=== PATIENT | male | born 1975 | race African-American/Black ===

== ENCOUNTER 2022-01-14 00:40 | Emergency (ER) | payer MEDICAID ==
[~2022-01-14] VITALS: Ht 172.7 cm; Wt 74.0 kg
[2022-01-14] MEDS ORDERED: SODIUM CHLORIDE 0.9% 1,000 ML IV ONE (01:00)
[2022-01-14 01:46] VITALS: BP 152/79
[2022-01-14 02:37] LABS: HEMATOCRIT. 43.3 % (42.0-52.0); HEMOGLOBIN. 14.2 g/dL (14.0-18.0); LYMPHOCYTES % 27.6 % (20.0-50.0); MEAN CORPUSCULAR HEMOGLOBIN 26.8 pg (28.0-32.0); MEAN CORPUSCULAR VOLUME 81.9 fL (80.0-94.0); MEAN PLATELET VOLUME 9.8 fl (7.4-10.4); NEUTROPHILS % 59.4 % (40.0-76.0); PLATELET 180 x1000/uL (130-400); RED BLOOD CELL COUNT 5.29 mill/uL (4.7-6.1); RED CELL DISTRIBUTION WIDTH 14.2 % (11.6-14.6)
[2022-01-14 02:53] LABS: CHLORIDE 105 mEq/L (98-107)
[2022-01-14 02:55] LABS: CLARITY URINE CLEAR (CLEAR); COLOR URINE YELLOW (YELLOW); KETONES URINE NEGATIVE (NEGATIVE); LEUKOCYTE ESTERASE URINE NEGATIVE (NEGATIVE); NITRITE URINE NEGATIVE (NEGATIVE); OCCULT BLOOD URINE NEGATIVE (NEGATIVE); PROTEIN URINE NEGATIVE (NEGATIVE); SPECIFIC GRAVITY URINE 1.009 (1.005-1.030); UROBILINOGEN URINE 0.2 E.U./dL (0.2-1.0)
[2022-01-14 02:57] LABS: ETHANOL BLOOD < 10 mg/dL
[2022-01-14 03:06] LABS: METHADONE URINE SCREEN NEGATIVE (NEGATIVE); OPIATES URINE SCREEN NEGATIVE (NEGATIVE)
[2022-01-14 03:07] LABS: *AMPHETAMINES SCREEN URINE NEGATIVE (NEGATIVE); *BARBITURATES SCREEN URINE NEGATIVE (NEGATIVE); *BENZODIAZEPINES SCREEN URINE NEGATIVE (NEGATIVE); *COCAINE SCREEN URINE NEGATIVE (NEGATIVE); CANNABINOID URINE SCREEN NEGATIVE (NEGATIVE); PHENCYCLIDINE URINE SCREEN PRESUMTIVE POSITIVE (NEGATIVE)
== END 2022-01-14 03:36 | disposition home or self-care (01) ==
LOC: EDBD → ER 00:40
DX: F10.29 Alcohol dependence with unspecified alcohol-induced disorder (principal); I49.9 Cardiac arrhythmia, unspecified
CPT/HCPCS: 36415; 80053; 80305; 80307; 80320; 80329; 81003; 85025; 93005; 99284; J7030; G0480

== ENCOUNTER 2022-01-14 04:12 | Emergency (ER) | payer MEDICAID ==
[~2022-01-14] VITALS: Ht 172.7 cm; Wt 82.0 kg
[2022-01-14 04:16] VITALS: BP 146/76
== END 2022-01-14 07:17 | disposition left against medical advice (07) ==
LOC: ER 04:12
DX: T65.91XA Toxic effect of unspecified substance, accidental (unintentional), initial encounter (principal); I10 Essential (primary) hypertension; Y92.9 Unspecified place or not applicable
CPT/HCPCS: 99283

== ENCOUNTER 2025-08-22 16:57 | Emergency (ER) | payer MEDICAID ==
[~2025-08-22] VITALS: Ht 180.3 cm; Wt 86.0 kg
[2025-08-22 17:03] VITALS: BP 126/79; PULSE 90; RESP 18; TEMP 98.2; O2SAT 98
== END 2025-08-22 17:15 | disposition left against medical advice (07) ==
LOC: ER 16:57
DX: F10.129 Alcohol abuse with intoxication, unspecified (principal); Y90.9 Presence of alcohol in blood, level not specified
CPT/HCPCS: 99283